=== PATIENT | male | born 1945 ===

== ENCOUNTER 2017-08-15 09:42 | Outpatient (CLI) | payer MEDICARE, OTHER ==
--- NOTE | 2017-08-15 13:25 | XRAY Report ---
THREE VIEW RIGHT HAND: 08/15/2017 CLINICAL INDICATION: Edema, discomfort. FINDINGS: AP, lateral, oblique views of the right hand demonstrate mild osteoarthritic changes of the interphalangeal joints. There is no evidence of acute fracture or dislocation. No foreign body is seen in the soft tissues. IMPRESSION: MILD OSTEOARTHRITIS. TD: 08/15/2017 13:24
== END 2017-08-15 09:43 | disposition home or self-care (01) ==
LOC: DI.S 09:42
PROVIDERS: ATTEND Nurse Practitioner Family
DX: M19.041 Primary osteoarthritis, right hand (principal)

== ENCOUNTER 2018-12-11 13:03 | Emergency (ER) | payer MEDICARE, OTHER ==
--- NOTE | 2018-12-11 13:44 | ED Physician Documentation ---
History of Present Illness - Stated complaint Stated Complaint: LEFT SIDE WEAKNESS, - Chief complaint Chief Complaint: Neuro - Additonal information Additional information: This is a 73-year-old male with a history of glioblastoma status post resection of 95% of the tumor on August 16 of this year with Dr. Anguiano at [facility], followed by 6 weeks of chemotherapy, patient is currently on a regimen where he receives chemotherapy for around 6 days and is 23 days without chemo. He also has a right leg DVT and is being treated with enoxaparin injections for this. He initially had a left-sided weakness and difficulty with fine motor control when he had the glioblastoma, after resection his symptoms sound like nearly completely resolved. He presents because around 4 days ago he began developing difficulty with fine motor control in his left side, with his left hand he cannot tie his shoe. His is also noticed that he has a slight ptosis and left facial droop. The symptoms have been slowly progressive over the last 4 days. He denies any weakness on the left side, and denies any numbness or tingling. He spoke with his provider at [facility], and I received a call from her (Valentina), given his symptoms she would like for him to receive a CT scan today. Patient denies any chest pain, shortness of breath, fever, or dysuria. Review of Systems Constitutional: denies: Fever Cardiac: denies: Chest pain / pressure Respiratory: denies: Dyspnea GI: denies: Abdominal Pain, Vomiting : denies: Dysuria Skin: denies: Rash Musculoskeletal: denies: Neck pain Neurologic: reports: Other (Decreased motor control on left hand.) Immunocompromised: reports: Chemotherapy PD PAST MEDICAL HISTORY - Past Medical History Past Medical History: Yes Other Past Medical History: Glioblastoma, DVT - Past Surgical History Past Surgical History: Yes Neuro: Other (Glioblastoma reserction August 16, 2018) - Present Medications Home Medications: Ambulatory Orders Medication Instructions Recorded Confirmed Atorvastatin [Lipitor] 10 mg PO DAILY 12/11/18 12/11/18 Cholecalciferol (Vitamin D3) 2,000 unit PO DAILY 12/11/18 12/11/18 [Vitamin D3] Enoxaparin [Lovenox] 120 mg SUBQ Q12H 12/11/18 12/11/18 Fluticasone [Flonase] 2 sprays FIOR DAILY 12/11/18 12/11/18 Levetiracetam [Keppra] 1,000 mg PO BID 12/11/18 12/11/18 Ondansetron HCl [Zofran] 8 mg PO PRN PRN 12/11/18 12/11/18 RX: Hydrochlorothiazide 12.5 mg PO DAILY 12/11/18 12/11/18 RX: Lisinopril 10 mg PO DAILY 12/11/18 12/11/18 Sennosides/Docusate Sodium 1 each PO DAILY 12/11/18 12/11/18 [Docusate Sodium-Senna Tablet] Temozolomide [Temodar] 380 mg PO 12/11/18 - Allergies Allergies/Adverse Reactions: Allergies Allergy/AdvReac Type Severity Reaction Status Date / Time sildenafil [From Viagra] Allergy Unknown Verified 12/11/18 13:15 - Living Situation Living Situation: reports: With spouse/s.o. - Social History Does the pt have substance abuse?: No PD ED PE NORMAL - Vitals Vital signs reviewed: Yes - General General: Alert and oriented X 3, No acute distress - HEENT HEENT: Atraumatic, EOMI - Neck Neck: Supple, no meningeal sign - Cardiac Cardiac: RRR - Respiratory Respiratory: No respiratory distress, Clear bilaterally - Abdomen Abdomen: Soft, Non tender, Non distended - Derm Derm: Warm and dry - Extremities Extremities: No deformity - Neuro Neuro: Other (Awake, alert, oriented to person, place, event. Speech fluent and articulate. CN: normal EOMI on H-testing, sensation to light touch intact and symmetric over V1,V2,V3. Face has slight, subtle left sided droop and ptosis at rest. Fairly symmetric with smiling and eyebrow raise. Tongue protrudes in midline.Motor: 5/5 strength with hand squeeze, elbow flexion and extension, hip flexion, ankle dorsiflexion and plantar flexion bilaterally. 4+/5 strength with finger abduction on left. Sensation: Intact to light touch over all extremities Cerebellar: Normal finger to nose without dysmetria. Normal heel-davis.Fine motor: Patient is unable to perform finger to thumb serial tapping on the left side. He has stated we will just flex and close his hand. Testing is normal on the right) - Psych Psych: Normal mood, Normal affect Results - Vitals Vitals: Oxygen O2 Source Room air - Labs Labs: Laboratory Tests 12/11/18 12/11/18 12/11/18 14:30 14:36 14:36 WBC 5.8 RBC 4.46 L Hgb 14.6 Hct 42.0 MCV 94.2 H MCH 32.7 H MCHC 34.8 RDW 12.9 Plt Count 296 MPV 8.7 Neut # (Auto) 3.7 Lymph # (Auto) 0.9 L [place] # (Auto) 1.1 H Eos # (Auto) 0.0 Baso # (Auto) 0.0 Absolute Nucleated RBC 0.00 Nucleated RBC % 0.0 PT 12.8 H INR 1.1 Sodium Potassium Chloride Carbon Dioxide Anion Gap BUN Creatinine Estimated GFR (MDRD) Glucose Calcium Total Bilirubin AST ALT Alkaline Phosphatase Total Protein Albumin Globulin Albumin/Globulin Ratio Lipase TSH Urine Color YELLOW Urine Clarity CLEAR Urine pH 7.0 Ur Specific [place] 1.015 Urine Protein NEGATIVE Urine Glucose (UA) NEGATIVE Urine Ketones NEGATIVE Urine Occult Blood NEGATIVE Urine Nitrite NEGATIVE Urine Bilirubin NEGATIVE Urine Urobilinogen 1 (NORMAL) Ur Leukocyte Esterase NEGATIVE Ur Microscopic Review NOT INDICATED Urine Culture Comments NOT INDICATED 12/11/18 12/11/18 14:36 14:36 WBC RBC Hgb Hct MCV MCH MCHC RDW Plt Count MPV Neut # (Auto) Lymph # (Auto) [place] # (Auto) Eos # (Auto) Baso # (Auto) Absolute Nucleated RBC Nucleated RBC % PT INR Sodium 138 Potassium 3.5 Chloride 102 Carbon Dioxide 24 Anion Gap 12.0 BUN 7 Creatinine 1.2 Estimated GFR (MDRD) 59 L Glucose 102 H Calcium 10.0 Total Bilirubin 0.9 AST 21 ALT 32 Alkaline Phosphatase 78 Total Protein 6.4 L Albumin 3.7 Globulin 2.7 Albumin/Globulin Ratio 1.4 Lipase 33 TSH 1.24 Urine Color Urine Clarity Urine pH Ur Specific [place] Urine Protein Urine Glucose (UA) Urine Ketones Urine Occult Blood Urine Nitrite Urine Bilirubin Urine Urobilinogen Ur Leukocyte Esterase Ur Microscopic Review Urine Culture Comments PD MEDICAL DECISION MAKING - ED course ED course: Pt presents with poor coordination and facial droop in the setting of recently starting anticoagulation and past glioblastoma resection. Ct head performed STAT. I was called a 2:45 with the results of patient's CT, he has an acute subdural hematoma which is 1.2 cm with some impingement on the right parietal lobe, no midline shift. I paged neurosurgery at [facility], I also ordered 80 mg of protamine sulfate to reverse his enoxaparin which was given less than 8 hours ago (he received 80 mg of Lovenox subcutaneously at 830 this morning). We were unable to get in touch with neurosurgeon at [facility] after multiple attempts, so I spoke with Dr. Lynn at the [facility] emergency department, who accepted the patient for transfer to the emergency department.Patient was updated and is in agreement with the plan. Given his bleed on anticoagulation we will fly him there. INR 1.1, [facility] or [facility] are unlikely to be of benefit. While we were waiting for air transport to arrive I spoke with Dr. Shaw of neurosurgery at 16:25 and reviewed the case, he agrees with transfer. I spoke with Jar Filler Dr. Holland 16:39, who is accepted patient for transfer to their ICU. Pt was transferred, prior to transfer I did note he had slightly increased facial droop. He was still awake, alert, protecting his airway without danette. Departure - Departure Disposition: 02 Transfer Acute Care Hosp Clinical Impression: Subdural hematoma, nontraumatic Condition: Serious Discharge Date/Time: 12/11/18 17:00
--- NOTE | 2018-12-11 14:45 | CT Report ---
Reason: headache Procedure Date: 12/11/2018 Accession Number: [id number] / [id number] Procedure: CT - HEAD WO CPT Code: FULL RESULT: EXAM: CT HEAD EXAM DATE: 12/11/2018 02:29 PM. CLINICAL HISTORY: Headache, history of prior glioblastoma resection, recently started on Lovenox for DVT. COMPARISON: Prior MRI brain 11/08/2018, prior CT head 09/28/2018. TECHNIQUE: Multiaxial CT images were obtained from the foramen magnum to the vertex. Reformats: Sagittal and coronal. IV contrast: None. In accordance with CT protocol optimization, one or more of the following dose reduction techniques were utilized for this exam: automated exposure control, adjustment of mA and/or KV based on patient size, or use of iterative reconstructive technique. Findings: Relevant images are indicated (image number, series number). Again seen encephalomalacia anterior right temporal lobe. No acute arterial doses of the major arteries. Interval development of anterior right convexity acute 1.2 cm thick subdural hematoma with mild mass-effect upon the anterior right frontal hemisphere, and also overlies the right parietal cortex. At the foramen of [place], there is no midline shift, no ventricular trapping. Again seen right temporal. Normal craniotomy. Begin seen likely simple appearing subcutaneous fluid overlying the right pterional defect. No suspicious bony lesions. Impressions: 1. Interval development of acute anterior right convexity 1.2 cm thick subdural hematoma with mild mass-effect, no midline shift or interventricular blood. 2. Otherwise stable chronic changes of the brain as detailed including resection site anterior right temporal lobe with encephalomalacia. No evidence for tumor recurrence on this unenhanced study. RADIA The call report notification system was initiated by Dr. Keyon Carrillo at 02:38 PM on 12/11/2018. The above critical result findings were discussed with Dr. Brewster by Dr. Keyon Carrillo at 02:43 PM on 12/11/2018.
[2018-12-11 14:46] LABS: BASOPHILS % (AUTO) 0.3 %; EOSINOPHILS % (AUTO) 0.5 %; HGB - HEMOGLOBIN 14.6 g/dL (14.0-18.0); LYMPHOCYTES # (AUTO) 0.9 10^3/uL (1.5-3.5); LYMPHOCYTES % (AUTO) 15.8 %; MEAN CORPUSCULAR HEMOGLOBIN 32.7 pg (27.0-31.0); MEAN CORPUSCULAR HGB CONC 34.8 g/dL (32.0-36.0); MEAN CORPUSCULAR VOLUME 94.2 fL (80.0-94.0); MEAN PLATELET VOLUME 8.7 fL (7.4-11.4); MONOCYTES # (AUTO) 1.1 10^3/uL (0.0-1.0); NEUTROPHILS # (AUTO) 3.7 10^3/uL (1.5-6.6); NEUTROPHILS % (AUTO) 63.9 %; PLT - PLATELET COUNT 296 10^3/uL (130-450); RED BLOOD COUNT 4.46 10^6/uL (4.70-6.10); RED CELL DISTRIBUTION WIDTH 12.9 % (12.0-15.0); WHITE BLOOD COUNT 5.8 x10^3/uL (4.8-10.8)
[2018-12-11] MEDS ORDERED: PROTAMINE 250 MG/25 ML VIAL IVP STA (14:50)
[2018-12-11 14:52] LABS: INR 1.1 (0.8-1.2); PT - PROTHROMBIN TIME 12.8 secs (9.9-12.6)
[2018-12-11 14:59] LABS: BILIRUBIN,URINE NEGATIVE (NEGATIVE); GLUCOSE, URINE (UA) NEGATIVE (NEGATIVE); KETONES,URINE (UA) NEGATIVE (NEGATIVE); LEUKOCYTE ESTERASE, URINE NEGATIVE (NEGATIVE); NITRITE,URINE NEGATIVE (NEGATIVE); OCCULT BLOOD,URINE NEGATIVE (NEGATIVE); PROTEIN,URINE NEGATIVE (NEGATIVE); UROBILINOGEN,URINE 1 (NORMAL) E.U./dL (NORMAL)
[2018-12-11 14:59] LABS: ALBUMIN 3.7 g/dL (3.2-5.5); ALBUMIN/GLOBULIN RATIO 1.4 (1.0-2.2); BILIRUBIN,TOTAL 0.9 mg/dL (0.2-1.0); CREATININE 1.2 mg/dL (0.6-1.2); TOTAL PROTEIN 6.4 g/dL (6.7-8.2)
[2018-12-11 15:00] LABS: CLARITY,URINE CLEAR (CLEAR)
[2018-12-11 16:38] VITALS: BP 128/83
== END 2018-12-11 17:00 | disposition short-term general hospital (02) ==
LOC: ED 13:03
DX: I62.01 Nontraumatic acute subdural hemorrhage (principal); R29.810 Facial weakness; Z85.841 Personal history of malignant neoplasm of brain; Z86.718 Personal history of other venous thrombosis and embolism; Z79.01 Long term (current) use of anticoagulants; I45.2 Bifascicular block
CPT/HCPCS: 36415; 70450; 80053; 81001; 81003; 83690; 84443; 85025; 85610; 87086; 93005; 96374; 99284

== ENCOUNTER 2018-12-15 14:27 | Emergency (ER) | payer MEDICARE, OTHER ==
--- NOTE | 2018-12-15 15:04 | CT Report ---
Reason: confusion glioblastoma and ICH Procedure Date: 12/15/2018 Accession Number: [id number] / [id number] Procedure: CT - HEAD WO CPT Code: FULL RESULT: EXAM: CT HEAD EXAM DATE: 12/15/2018 02:51 PM. CLINICAL HISTORY: Intracranial hemorrhage follow-up. History of previous craniotomy for brain tumor treatment. COMPARISON: CT HEAD WO CONTRAST 12/11/2018 7:43 PM. TECHNIQUE: Multiaxial CT images were obtained from the foramen magnum to the vertex. Reformats: Sagittal and coronal. IV contrast: None. In accordance with CT protocol optimization, one or more of the following dose reduction techniques were utilized for this exam: automated exposure control, adjustment of mA and/or KV based on patient size, or use of iterative reconstructive technique. FINDINGS: Again seen are findings of multilobulated extra-axial hematoma over the right anterior cerebral convexity. Blood is now smaller in volume and less dense compared to the prior study. Hematoma is most conspicuous over the anterior right frontal convexity with maximal thickness now of 10-11 mm, previously about 13 mm. No new or progressive intracranial hemorrhage. Stable brain volume loss. No developing hydrocephalus. Stable surgical changes associated with previous right partial temporal lobectomy. 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 IMPRESSION: No new or acute abnormality. Persistent but smaller and less dense residual extra-axial hematoma over the right anterior cerebral convexity. Stable surgical changes in the right temporal region. RADIA
--- NOTE | 2018-12-15 15:17 | ED Physician Documentation ---
PD HPI FOCAL NEURO - Stated complaint Stated Complaint: CT SCAN - Chief complaint Chief Complaint: Neuro - History obtained from History obtained from: Patient - History of Present Illness Timing - onset: Other (This is a 73-year-old gentleman who has a history of glioblastoma status post resection. He was seen here on Tuesday of this week, 5 days ago for some new neurologic symptoms on the left side and diagnosed with a subdural hematoma. Of note he was on Lovenox at the time. He was transferred to [facility] after being given protamine. While at [facility] he had no interventions on his head but he did receive a DVT filter such that he could come off of Lovenox. He feels like his left-sided symptoms are persistent but slowly improving and his oncologist recommended he come in for a CT today. He has no new or worsening symptoms.) Review of Systems Constitutional: denies: Fever, Chills Nose: denies: Rhinorrhea / runny nose, Congestion Respiratory: denies: Dyspnea, Cough PD PAST MEDICAL HISTORY - Past Medical History Past Medical History: Yes Cardiovascular: Hypertension, High cholesterol, Murmur Respiratory: None Neuro: None Endocrine/Autoimmune: None GI: None : None HEENT: None Psych: None Musculoskeletal: None Derm: None - Past Surgical History Past Surgical History: Yes General: Colonoscopy, Other Ortho: Other Neuro: Other - Present Medications Home Medications: Ambulatory Orders Medication Instructions Recorded Confirmed Atorvastatin [Lipitor] 10 mg PO DAILY 12/11/18 12/11/18 Cholecalciferol (Vitamin D3) 2,000 unit PO DAILY 12/11/18 12/11/18 [Vitamin D3] Enoxaparin [Lovenox] 120 mg SUBQ Q12H 12/11/18 12/11/18 Fluticasone [Flonase] 2 sprays FIOR DAILY 12/11/18 12/11/18 Levetiracetam [Keppra] 1,000 mg PO BID 12/11/18 12/11/18 Ondansetron HCl [Zofran] 8 mg PO PRN PRN 12/11/18 12/11/18 RX: Hydrochlorothiazide 12.5 mg PO DAILY 12/11/18 12/11/18 RX: Lisinopril 10 mg PO DAILY 12/11/18 12/11/18 Sennosides/Docusate Sodium 1 each PO DAILY 12/11/18 12/11/18 [Docusate Sodium-Senna Tablet] Temozolomide [Temodar] 380 mg PO 12/11/18 - Allergies Allergies/Adverse Reactions: Allergies Allergy/AdvReac Type Severity Reaction Status Date / Time sildenafil [From Viagra] Allergy Unknown Verified 12/11/18 13:15 - Social History Does the pt smoke?: No Smoking Status: Never smoker Does the pt drink ETOH?: No Does the pt have substance abuse?: No - Immunizations Immunizations are current?: Yes - POLST Patient has POLST: No PD ED PE NORMAL - Vitals Vital signs reviewed: Yes - General General: Alert and oriented X 3, No acute distress - HEENT HEENT: PERRL, EOMI, Other (He has a very mild ptosis on the left) - Neck Neck: Supple, no meningeal sign, No bony TTP - Cardiac Cardiac: RRR - Respiratory Respiratory: No respiratory distress, Clear bilaterally - Abdomen Abdomen: Non tender - Neuro Neuro: Alert and oriented X 3, camera repairman 2-12 intact, No motor deficit, No sensory deficit, Normal speech - Psych Psych: Normal mood, Normal affect Results - Vitals Vitals: Vital Signs - 24 hr 12/15/18 12/15/18 14:31 16:08 Temperature 36.7 C Heart Rate 108 H 110 H Respiratory 14 16 Rate Blood Pressure 100/57 L 92/58 L O2 Saturation 94 98 Oxygen O2 Source Room air - Rads (name of study) Ct Head Radiology: EMP read contemporaneously (Persistent but smaller and less dense residual extra-axial hematoma over the right anterior cerebral convexity without new or acute abnormality.) PD MEDICAL DECISION MAKING - ED course ED course: This is a 73-year-old gentleman who had a recent subdural hemorrhage which was treated conservatively but he had a DVT filter placed and is now off of his blood thinners who presents with improving symptoms but was urged to get a repeat CT today which was done with improving findings. I spoke with Dr. Perez, neurosurgery fellow at [facility] who reviewed the images and felt continue to outpatient conservative care was fine. Departure - Departure Disposition: 01 Home, Self Care Clinical Impression: Subdural hematoma, nontraumatic Condition: Good Record reviewed to determine appropriate education?: Yes Comments: If any of your symptoms worsen please return immediately or seek care immediately at [facility] for further evaluation and treatment. Otherwise continue the current treatment plan as your CT is improving. Discharge Date/Time: 12/15/18 16:08
[2018-12-15 16:09] VITALS: BP 92/58
== END 2018-12-15 16:08 | disposition home or self-care (01) ==
LOC: ED 14:27
DX: Z76.89 Persons encountering health services in other specified circumstances (principal); I62.00 Nontraumatic subdural hemorrhage, unspecified; I10 Essential (primary) hypertension
CPT/HCPCS: 70450; 99282; 99284

== ENCOUNTER 2019-10-24 08:00 | Outpatient (CLI) | payer MEDICARE, OTHER | END 2019-10-24 23:59 | disposition home or self-care (01) | LOC: LAB.R 08:00 | PROVIDERS: ATTEND Psychiatry & Neurology Neurology | DX: L02.412 Cutaneous abscess of left axilla (principal) | CPT/HCPCS: 87070; 87077; 87181; 87205 ==

== ENCOUNTER 2019-10-30 08:00 | Outpatient (CLI) | payer MEDICARE, OTHER | END 2019-10-30 23:59 | disposition home or self-care (01) | LOC: LAB.R 08:00 | PROVIDERS: ATTEND Psychiatry & Neurology Neurology | DX: L02.411 Cutaneous abscess of right axilla (principal); B95.62 Methicillin resistant Staphylococcus aureus infection as the cause of diseases classified elsewhere | CPT/HCPCS: 87081; 87640 ==